=== PATIENT | female | born 1950 | race Caucasian/White ===

== ENCOUNTER 2017-02-24 14:46 | Inpatient (IN) | payer MEDICARE, BC ==
--- NOTE | ~2017-02-24 | CT16 ---
[facility] A Service of [facility] RADIOLOGY TEXT RESULTS PATIENT: BURAK CHEEMA LOCATION: [facility] 319-01 : 50 UNIT #: [id number] AGE: [address]: Charmaine Mcgill MD SEX: F ORDER DR: [id number] [facility] [address] [facility]. [place], [place] [address] [id number] I MR#: [id number] #: [id number] NAME: BURAK CHEEMA : 1950 SEX: F STUDY DATE/TIME: 02/24/2017 19:09 UNIT: [address] ROOM: [facility] STUDY DESCRIPTION: CT Angio Chest for PE Attending Physician: Italia Niño M.D. Ordering Physician: Italia Niño M.D. Primary Care Physician: Maria Isabel Maxwell A.P.R.N. MEDICAL IMAGING REPORT This report is preliminary unless electronic signature is present EXAM Chest CTA, 02/24. INDICATION Acute respiratory failure with shortness of air for 4 days. Elevated D-dimer. Productive cough and wheezing. TECHNIQUE Axial images were obtained through the chest without contrast. 3D reformats were obtained. COMPARISON STUDIES No comparison. This CT exam was performed with one or more of the following radiation dose reduction techniques: automatic exposure control, adjustment of mA and/or kV according to patient size, and iterative reconstruction. FINDINGS There is no pulmonary embolism or aortic dissection. There is coronary artery disease and atherosclerotic disease. Additionally, there is calcification in the aortic valve which could indicate aortic stenosis. There is no pleural or pericardial effusion. There is mediastinal and hilar adenopathy. Subcarinal node has a short axis diameter of about 1.8 cm. Right hilar adenopathy measures about 1.6 x 3.2 cm. Multiple enlarged AP window and prevascular nodes are seen. For example, there is an AP window node measuring 1.9 x 1.2 cm. Right paratracheal node measures 1.8 x 1.6 cm. No axillary adenopathy. Scattered granulomatous calcifications are present in the chest. There is bronchial wall thickening noted bilaterally, suggesting bronchitis. Acute alveolar infiltrates are not seen. The upper abdomen is unremarkable. [facility]. [facility] A Service of [facility] RADIOLOGY TEXT RESULTS PATIENT: BURAK CHEEMA LOCATION: [facility] 319-01 : [birth year] UNIT #: [id number] AGE: [address]: Charmaine Mcgill MD SEX: F ORDER DR: IMPRESSION 1. No pulmonary embolism or aortic dissection. 2. Mediastinal and right hilar adenopathy is nonspecific. This could be due to sarcoid or lymphoma or even metastatic disease in the appropriate clinical setting. Consider follow up contrast chest CT in 3 months for further evaluation. 3. Evidence of bilateral bronchitis. 4. Old granulomatous disease. 5. Atherosclerotic disease and coronary artery disease. Additionally, calcifications in the aortic valve would suggest aortic stenosis. Dictated by... Joel Soto Jr., M.D. THIS IS AN ELECTRONICALLY VERIFIED REPORT Joel Soto Jr., M.D. at 02/25/2017 12:58 PM BEKAH/che TD: 02/24/2017 22:52 JOB #: [id number] MEDICAL IMAGING REPORT Page 1 of 1 COPY
--- NOTE | ~2017-02-24 | HP ---
Unit #: [id number] #: [id number] Patient: BURAK CHEEMA [id number] [place], [place] [address] [id number] MR#: [id number] NAME: BURAK CHEEMA ROOM: Age: 66 Sex: F Admission Date: 02/24/2017 : 1950 Attending Physician: Kolby Ibrahim M.D. Primary Care Physician: Maria Isabel Maxwell A.P.R.N. HISTORY AND PHYSICAL CHIEF COMPLAINT Shortness of air. HISTORY OF PRESENT ILLNESS The patient is a 66-year-old female with a past medical history of CHF, diabetes, hypertension, hyperlipidemia, who presented to the emergency department for evaluation of the above. The patient states that she was in her usual state of health until 02/21/2017 when she developed increasing shortness of breath and productive cough. She denies any fever. She states that she has had chest wall pain in association with cough. She has had paroxysmal nocturnal dyspnea, as well as dyspnea on exertion, walking across the room. She states that she had to sleep sitting up last night due to difficulty breathing. She has had lower extremity edema. She reports decreased appetite but no vomiting or diarrhea. She states that she has been taking her medications as prescribed. Upon arrival in the emergency department, initial oxygen saturation was 91% on room air, but dropped to 82% during the course of her evaluation in the emergency department. Chest x-ray shows mild edema versus chronic lung disease. She is being admitted to [facility] for evaluation and further treatment. PAST MEDICAL HISTORY 1. Admission to [facility] about three years ago for chest pain (no records). 2. Congestive heart failure with unknown ejection fraction, followed by Dr. Blanco. 3. Hypertension. 4. Hyperlipidemia. 5. Diabetes. PAST SURGICAL HISTORY 1. Cardiac catheterization at [facility] (no records). 2. Tonsillectomy. 3. D and C. SOCIAL HISTORY The patient lives alone. There is no tobacco or alcohol use. She is retired from the [employer]. Her code status is a full code. FAMILY HISTORY Unit #: [id number] #: [id number] Patient: BURAK CHEEMA Notable for her dad having coronary artery disease, as well as cerebrovascular accident. ALLERGIES BRITTANY inhibitors, Neosporin, polymyxin, pioglitazone. HOME MEDICATIONS Diovan 320 mg daily; metoprolol 50 mg daily; amlodipine 10 mg daily; metformin 500 mg unknown frequency; diclofenac 75 mg daily; atorvastatin 80 mg daily; potassium 20 mEq twice daily; Lasix 40 mg b.i.d.; gabapentin 300 mg b.i.d.; aspirin 81 mg daily; calcium 600 mg daily; vitamin D 5,000 mg daily; centrum silver daily. Home medications will need to be reviewed and verified. REVIEW OF SYSTEMS A complete review of systems is negative except as indicated in the HPI. The patient states that her blood sugars are typically in the 300s. PHYSICAL EXAMINATION VITAL SIGNS: Temperature is 98, pulse 96, respirations 18, blood pressure 156/62, oxygen saturation 91% on room air. Per my discussion with the ER staff, oxygen saturation dropped to 82% on room air during the course of her evaluation in the emergency department. GENERAL: The patient is a female who is awake and alert in no acute distress. HEENT: The head is atraumatic. Mucous membranes are moist. NECK: Supple. Trachea is midline. CARDIOVASCULAR: Regular rate and rhythm. LUNGS: Demonstrates inspiratory and expiratory wheezes. Breathing is mildly labored with conversation. ABDOMEN: Soft, nontender with bowel sounds present in all four quadrants. EXTREMITIES: Show 1+ pitting edema. NEUROLOGIC: The patient is awake and alert. She follows commands. PSYCH: Mood and affect are normal. The patient is cooperative. SKIN: Skin of examined areas is warm and dry. DIAGNOSTIC STUDIES CARDIOLOGY STUDIES: EKG shows normal sinus rhythm with a rate of 97 BPM. IMAGING STUDIES: Chest x-ray shows mild edema versus chronic lung disease. LABORATORY STUDIES: Complete blood count notable for white blood cell count of 11. Troponin is less than 0.5. Comprehensive metabolic panel notable for sodium of 132 that corrects when glucose of 344 is accounted for. Alk phos 126, albumin 3.3, BNP is 495. ASSESSMENT The patient is a 66-year-old female with: 1. Acute respiratory failure, hypoxic. 2. Bronchospasm. The patient denies a history of COPD or asthma. She was never a smoker. 3. Congestive heart failure with unknown ejection fraction. 4. Uncontrolled diabetes with an initial glucose of 344. 5. Hypertension. 6. Hyperlipidemia. PLANS Unit #: [id number] #: [id number] Patient: BURAK CHEEMA 1. Admit to an intermediate level. 2. 2 g sodium 1800 mL fluid restricted heart healthy consistent carb diet. 3. Supplement oxygen. 4. DuoNeb. 5. Solu-Medrol 80 mg IV q.12 hours with first dose now. 6. Mucinex 600 mg p.o. b.i.d. 7. Doxycycline 100 mg p.o. b.i.d. for a possible acute bronchitis. 8. Strict I's and O's. 9. Daily weights. 10. 2D echo. 11. Lasix 40 mg IV q.12 hours with first dose now. 12. TSH. 13. Serial cardiac enzymes. 14. Get cardiac cath report from [place]. 15. Low dose sliding scale insulin with Accu-Cheks. 16. Hemoglobin A1c. 17. Protonix for GI prophylaxis since the patient will be on Solo-Medrol. 18. Lovenox for DVT prophylax. 19. Check urinalysis. 20. Repeat labs in the morning. 21. Additional workup and consults based on above. Dictated by Claire Juan/kvng TD: 02/24/2017 18:23 JOB #: [id number] HISTORY AND PHYSICAL Page 1 of 1 X Italia Niño MD X HISTORY AND PHYSICAL
--- NOTE | ~2017-02-24 | DS ---
Unit #: [id number] #: [id number] Patient: BURAK CHEEMA [id number] [address] [id number] I MR#: [id number] NAME: BURAK CHEEMA. ROOM: 319 Age: 66 Sex: F Admission Date: 02/24/2017 : 1950 Discharge Date: Attending Physician: Charmaine Mcgill M.D. Primary Care Physician: Maria Isabel Maxwell A.P.R.N. DISCHARGE SUMMARY DISCHARGE DIAGNOSES 1. Acute hypoxic respiratory failure. 2. Acute on chronic diastolic heart failure. 3. Acute bronchitis. 4. Diabetes mellitus type 2 uncontrolled. 5. Moderate to severe aortic stenosis. 6. Cardiac asthma. 7. Hyperlipidemia. 8. Hyponatremia, likely from congestive heart failure. 9. No sepsis. 10. Elevated lactic acid most likely from hypoxia and congestive heart failure. CONSULTATIONS 1. Dr. Griffiths. 2. Dr. Quinn. PROCEDURES None. DIAGNOSTIC STUDIES LABORATORY: Glucose 471, sodium 134, potassium 3.7, creatinine 1.3, glucose 185. WBC 22.3, hemoglobin 11.8, platelets 263. Urine cultures negative. Blood cultures negative. IMAGING: CT angio chest shows no pulmonary embolism. Mediastinal right hilar adenopathy, nonspecific, could be from sarcoid or lymphoma. Repeat CT in three months' time recommended. Old granulomatous changes present. Calcification of aortic valves suggesting aortic stenosis present. CARDIOVASCULAR: Echocardiogram shows ejection fraction 50 to 55%, moderate to severe aortic stenosis present, moderate aortic regurgitation and moderate mitral regurgitation present. ALLERGIES Multiple includin. BRITTANY inhibitors. 2. Neomycin. 3. Bacitracin. 4. Polymyxin B. 5. Pioglitazone. DISCHARGE MEDICATIONS 1. Calcium 600 mg p.o. daily. Unit #: [id number] #: [id number] Patient: BURAK CHEEMA 2. Neurontin 300 mg p.o. b.i.d. 3. Lipitor 80 mg daily. 4. Toprol XL 50 mg p.o. daily. 5. Lasix 20 mg p.o. b.i.d. Start date 02/28/2017. 6. Humibid LA 600 mg p.o. b.i.d. 7. Diovan 150 mg p.o. daily. Start date 03/01/2017. 8. Levemir 20 units subcu q.8 a.m. 9. NovoLog low dose sliding scale a.c. and h.s. 10. Multivitamin one tablet daily. 11. Aspirin 81 mg daily. 12. Doxycycline 100 mg p.o. b.i.d. 13. B complex one tablet daily. 14. Vitamin D3 5,000 international units p.o. daily. 15. Albuterol MDI two puffs inhalation four times daily p.r.n. shortness of breath. 16. Symbicort 160 mcg two puffs inhalation b.i.d. 17. Prednisone tapering dose. HOSPITALIZATION COURSE A 66-year-old admitted with shortness of breath. Acute on chronic diastolic heart failure: Aortic stenosis can be contributing for the heart failure also in her case. The patient was given IV diuretics. Currently, her swelling is better. Her shortness of breath got better. She will be discharged on p.o. Lasix and decreased dose of Diovan. The patient will follow Dr. Blanco as an outpatient. Severe aortic stenosis and moderate aortic regurgitation with moderate mitral regurgitation: The patient was seen by Cardiology. 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 Blanco, for it. The patient needs SHAYLA as an outpatient to monitor her aortic stenosis. The patient agrees to follow Dr. Blanco for SHAYLA and possible heart cath and follow for her aortic stenosis as an outpatient. Acute bronchitis: Also, her rhonchi could be possible from cardiac asthma. The patient received IV Solu-Medrol, DuoNeb and will be discharged on Albuterol, Symbicort and prednisone tapering dose. Diabetes mellitus type 2: Uncontrolled secondary to steroids. Levemir has been started. I am going to give her prescription for sliding scale and Levemir. Morbid obesity secondary to calories. Mild acute kidney injury secondary to diuretics and Diovan which has been cut down. She will have a BMP checked on 03/05/2017 and follow with PCP with results. Discussed with the daughter and patient. They agree to follow with Dr. Blanco for outpatient SHAYLA, possible cardiac cath and follow for her aortic stenosis. Discussed with Dr. Griffiths. The patient will be discharged home. Follow with the PCP in one week's time. The patient will have BMP on 03/05/2017. Follow with the PCP with results. Follow with Dr. Blanco in one to two weeks' time. The patient needs a repeat CT chest in three months' time for her pulmonary right hilar adenopathy, possible granulomatous disease and Unit #: [id number] #: [id number] Patient: BURAK CHEEMA follow with Dr. Quinn with that. Discharge time taken is 35 minutes. Dictated by... Claire Pena/zackary TD: 02/27/2017 13:12 JOB #: [id number] DISCHARGE SUMMARY Page 1 of 1 X Charmaine Mcgill MD X DISCHARGE SUMMARY
--- NOTE | ~2017-02-24 | CR72 ---
[facility] A Service of [facility] RADIOLOGY TEXT RESULTS PATIENT: BURAK CHEEMA LOCATION: [facility] 319-01 : [birth year] UNIT #: [id number] AGE: [address]: Charmaine Mcgill MD SEX: F ORDER DR: [id number] [facility] [address] [facility] [place], [place] [address] [id number] E MR#: [id number] Acc #: [id number] NAME: BURAK CHEEMA. : 1950 SEX: F STUDY DATE/TIME: 02/24/2017 15:53 UNIT: [facility] ROOM: STUDY DESCRIPTION: CR Chest Single View Portable Attending Physician: Kolby Ibrahim M.D. Ordering Physician: Kolby Ibrahim M.D. Primary Care Physician: Maria Isabel Maxwell A.P.R.N. MEDICAL IMAGING REPORT This report is preliminary unless electronic signature is present EXAM Portable AP view of the chest. COMPARISON None. INDICATION 66-year-old female with dyspnea, cough for 3 days. History of CHF. FINDINGS There is top normal heart size. There is cephalization of pulmonary vasculature with prominent interstitial opacities in both lung bases. These findings may reflect mild interstitial edema. No evidence of pneumothorax, pleural effusion or consolidative pneumonia. Diffuse spondylosis of the thoracic spine. IMPRESSION Top normal heart size. Cephalization of pulmonary vasculature with prominence of the pulmonary interstitium in the lung bases, findings possibly reflective of mild interstitial edema. Chronic lung disease could possibly give this appearance. Clinical correlation recommended. No pleural effusion or evidence of pneumonia. Dictated by... Mukesh Valladares M.D. THIS IS AN ELECTRONICALLY VERIFIED REPORT Mukesh Valladares M.D. at 03/03/2017 2:01 PM Kelly TD: 02/24/2017 17:52 JOB #: [id number] [facility] A Service [facility] RADIOLOGY TEXT RESULTS PATIENT: BURAK CHEEMA LOCATION: [facility] 319-01 : [birth year] UNIT #: [id number] AGE: [address]: Charmaine Mcgill MD SEX: F ORDER DR: MEDICAL IMAGING REPORT Page 1 of 1 COPY
--- NOTE | ~2017-02-24 | EKG ---
PATIENT: BURAK CHEEMA UNIT #: [id number] Ventricular Rate: 97 BPM Atrial Rate: 97 BPM P-R Interval: 138 ms QRS Duration: 88 ms Q-T Interval: 350 ms QTC Calculation(Bezet): 444 ms Calculated R [place]: 132 degrees Calculated T [place]: -158 degrees Diagnosis Line: Normal sinus rhythm Diagnosis Line: Left posterior fascicular block Diagnosis Line: Left ventricular hypertrophy with repolarization Diagnosis Line: abnormality Diagnosis Line: Abnormal ECG Diagnosis Line: No previous ECGs available Diagnosis Line: Confirmed by PEDRO SCHMITT MD ([id number]) on Diagnosis Line: 02/27/2017 3:15:05 PM INTERPRETING MD: OSKAR TREJO
--- NOTE | ~2017-02-24 | CO ---
Unit #: [id number] #: [id number] Patient: BURAK CHEEMA [id number] [address] [address] [id number] I MR#: [id number] NAME: BURAK CHEEMA. ROOM: 319 Age: 66 Sex: F Admission Date: 02/24/2017 : 1950 Attending Physician: Charmaine Mcgill M.D. Primary Care Physician: Maria Isabel Maxwell A.P.R.N. CONSULTATION REPORT REASON FOR CONSULTATION Respiratory failure. CHIEF COMPLAINT AND HISTORY OF PRESENT ILLNESS This patient basically is a 66-year-old female. According to the patient, has a past medical history of congestive heart failure, obstructive sleep apnea, dyslipidemia and diabetes mellitus. Presents with the complaint of shortness of breath since Sunday. Cough, shortness of breath, increasing sputum production. CT chest was done. Showed bronchitis, bronchitic changes. I am seeing her at the bedside. She denies any nausea, vomiting, diarrhea. PAST MEDICAL HISTORY As described above, congestive heart failure, hypertension, dyslipidemia, obstructive sleep apnea - noncompliant with CPAP. SURGICAL HISTORY Cardiac catheterization, tonsillectomy, D and C. SOCIAL HISTORY Never smoked. No alcohol. No drug abuse. FAMILY HISTORY Coronary artery disease. ALLERGIES BRITTANY inhibitor, Neosporin, polymyxin and pioglitazone. MEDICATIONS Diovan, Metoprolol, amlodipine, metformin, diclofenac, Lipitor, potassium, Lasix, gabapentin, aspirin, calcium, vitamin. PHYSICAL EXAMINATION VITAL SIGNS: Temperature 98, pulse 87, respirations 12, blood pressure 156/62. NEUROLOGIC: Awake, alert and oriented. No neuro deficits. HEENT: PERRLA. EOMI. NECK: Supple. No JVD. CHEST: Bilateral air entry. Bilateral mild rhonchi. GI: Nontender. Soft. Bowel sounds are positive. EXTREMITIES: No edema. SKIN: No rashes, no ulcer. LYMPHATIC: No lymphadenopathy. Unit #: [id number] #: [id number] Patient: BURAK CHEEMA DIAGNOSTIC STUDIES Labs and imaging have been reviewed. ASSESSMENT 1. Acute respiratory failure. 2. Bronchospasm. 3. Acute bronchitis. 4. Congestive heart failure. 5. Mediastinal lymphadenopathy. PLAN At this point, plan is to continue the patient on IV steroids. Decrease the strength and continue doxycycline. Sputum culture. Will send for respiratory pathogen panel. Patient needs exercise oximetry. Will need a repeat sleep study as an outpatient. Will need endobronchial ultrasound with biopsy of the mediastinal lymph nodes. Patient will be closely monitored. Please see orders for detailed plan. Thank you very much for this consultation. Dictated by... Claire Husain/candelaria TD: 02/25/2017 11:54 JOB #: [id number] CONSULTATION REPORT Page 1 of 1 X Rich Quinn MD X CONSULTATION REPORT
--- NOTE | ~2017-02-24 | CO ---
Unit #: [id number] #: [id number] Patient: BURAK CHEEMA [id number] [address] [place], [place] [address] [id number] MR#: [id number] NAME: BURAK CHEEMA. ROOM: 319 Age: 66 Sex: F Admission Date: 02/24/2017 : 1950 Attending Physician: Charmaine Mcgill M.D. Primary Care Physician: Maria Isabel Maxwell A.P.R.N. Consultation Date: 02/27/2017 CONSULTATION REPORT REASON FOR CONSULTATION Moderate to severe aortic stenosis and management of acute on chronic diastolic congestive heart failure. HISTORY OF PRESENT ILLNESS This is a 66-year-old white female with known history of diabetes mellitus, hypertension, hyperlipidemia, history of diastolic congestive heart failure. She had been following Dr. Blanco. She had a cath about six years ago and she reports she had about a 20% blockage in one vessel. Also, she knew she had a murmur but was never told had any significant valve issues. She reports she has lost 40 pounds in the last six months because of staying off of concentrated sweets and stopping all sodas. She came into the hospital with complaints of increased shortness of breath, paroxysmal nocturnal dyspnea and orthopnea, productive cough of yellowish sputum and increased lower extremity swelling. She denies any chest pain, pain in her neck, bilateral jaws, shoulders arms or elbow. She denies any palpitations. No dyspnea, presyncope or syncope. She denies any fever or chills. She denies any nausea, vomiting, diarrhea or abdominal pain. After evaluation, the patient was found to be in acute bronchitis and acute on chronic diastolic congestive heart failure. She is receiving treatment for her acute bronchitis and is followed by Dr. Quinn. She also is being diuresed with IV Lasix. Her 2-D echo was done and it showed her LVEF was 50 to 55%. She had moderate to severe aortic stenosis and moderate aortic regurgitation and moderate mitral regurgitation. With these findings on the echo and suspecting they may be contributing to her symptoms, Cardiology was consulted to assist with evaluation and management. PAST MEDICAL HISTORY 1. Diabetes mellitus type 2. 2. Hypertension. 3. Hyperlipidemia. 4. History of diastolic congestive heart failure and has followed Dr. Blanco at [facility]. 5. Obstructive sleep apnea but noncompliant with her CPAP. 6. Six years ago, the patient reports having a heart catheterization, revealed about a 20% blockage in one vessel, medical management. 7. Also told she has a murmur. 8. A 40 pound weight loss in about six months. 9. Obesity 227 lb. BMI is 40. 10. Nonsmoker. 11. 02/25/17, 2-D echo, LVEF of 50 to 55% that revealed moderate to Unit #: [id number] #: [id number] Patient: BURAK CHEEMA severe aortic stenosis, moderate aortic regurgitation, moderate mitral regurgitation, mild to moderate LVH. PAST SURGICAL HISTORY 1. Tubal ligation. 2. Tonsillectomy. SOCIAL HISTORY The patient lives in her home alone. She is . She is retired from the [employer]. She is a lifelong nonsmoker. No alcohol, illicit drug abuse. FAMILY HISTORY Her father had coronary artery disease and from a stroke but he had a couple of MIs and he had coronary bypass graft. She has a younger brother who has diabetes mellitus. ALLERGIES 1. BRITTANY inhibitors. 2. Actos. 3. Neosporin. HOME MEDICATIONS 1. Diovan 320 mg p.o. daily. 2. Toprol XL 50 mg p.o. daily. 3. Norvasc 10 mg p.o. daily. 4. Diclofenac 75 mg p.o. daily. 5. Lipitor 80 mg p.o. daily. 6. Klor-Con 20 mEq p.o. twice daily. 7. Lasix 40 mg p.o. twice daily. 8. Neurontin 300 mg p.o. twice daily. 9. Aspirin 81 mg daily. 10. Calcium 600 mg p.o. daily. 11. Vitamin D3 5,000 mg p.o. daily. 12. Vitamin B complex one tablet p.o. daily. 13. Centrum Silver one tablet p.o. daily. 14. Metformin 1,000 mg p.o. twice daily. REVIEW OF SYSTEMS See details in HPI. PHYSICAL EXAMINATION GENERAL APPEARANCE: The patient is a 66-year-old white female in no acute respiratory distress. She is awake, alert and oriented. VITAL SIGNS: Blood pressure this morning is 112/61. Heart rate 74. Respirations 16. Temperature 98.5. O2 sats 95% on two liters. NECK: Trachea midline. No thyromegaly, lymphadenopathy. Normal carotid upstrokes. No jugular venous distention. HEART: S1, S2. A 3/6 systolic murmur over aortic region left sternal border. LUNGS: Diminished in bases with scattered rhonchi and wheezes throughout especially upper airways. ABDOMEN: Obese, soft, nontender. EXTREMITIES: Pedal pulses are palpable with trace pedal edema. DIAGNOSTIC STUDIES LABORATORY: Today's labs: Glucose 185, BUN 71, creatinine 1.3, EGFR 42.7, sodium 134, potassium 3.7, chloride 97, CO2 25, calcium 9.1, total protein Unit #: [id number] #: [id number] Patient: BURAK CHEEMA J 7.8, albumin 3.3, bilirubin total 0.9, AST 18, ALT 16, alkaline phosphatase 126. BNP 495. TSH 1.0. Lactic acid on admission was 2.9 and later 3.3. WBC on admission was 11.0, today, 22, hemoglobin 11.8, hematocrit 35.9, platelets 263. Initial cardiac enzymes: CK MB 7.1, troponin less than 0.05. Repeat cardiac enzymes: CK total 269, MB 3.4, percentage of MB 1.3 and troponin less than 0.03. CK total 197, MB 3.7, percentage of MB 1.9 and troponin less than 0.03. Urinalysis: Greater than 1,000 glucose, 0.2 urobilinogen, otherwise, unremarkable. Blood cultures, preliminary report, no growth. Urine culture, final, no growth. D-dimer 1,103. IMAGING: Chest x-ray showed pulmonary vascular with prominence of the pulmonary interstitium in the lung bases. Findings possibly reflective of mild interstitial edema. Chronic lung disease could possibly give this appearance. CT of the chest, PE protocol, shows no pulmonary embolism or aortic dissection. Mediastinal and right hilar adenopathy is nonspecific. Evidence of bilateral bronchitis, atherosclerotic disease and coronary artery disease. CARDIOVASCULAR: EKG shows normal sinus rhythm with ventricular rate 97 beats per minute, left ventricular hypertrophy, left atrial abnormality, nonspecific ST-T wave abnormalities in inferolateral leads. IMPRESSION 1. Acute on chronic hypoxic respiratory failure, acute bronchitis. 2. Acute on chronic diastolic congestive heart failure. LVEF of 50 to 55%. 3. Moderate to severe aortic stenosis, moderate mitral regurgitation, moderate aortic regurgitation. 4. Hypertension. 5. Hyperlipidemia. 6. Diabetes mellitus type 2. 7. Obstructive sleep apnea but noncompliant with her CPAP. 8. Recent 40 pound weight loss in six months. 9. Obesity, 227 pounds with a BMI of 40. 10. Six years ago had a cardiac cath that showed nonobstructive minimal CAD. PLAN 1. Cardiology consult to assist with evaluation and management. The patient being diuresed with IV Lasix with strict intake and output and daily weights. Today, her BUN went from 17 on admission to 71. So, we will hold the Lasix today. On exam, she does not appear to be in any significant overload, has discussed with the patient fluid restriction and salt restriction. 2. Discussed with the patient the reason for Cardiology consult to discuss about the moderate to severe aortic stenosis. Dr. Griffiths had a long discussion with the patient and the daughter at the bedside and the recommendation is to have a transesophageal echocardiogram to determine the severity of the aortic stenosis. Her recommendation is if the SHAYLA shows aortic stenosis is severe, she will need left and right heart catheterization. The patient is deciding whether she wants to return back to [facility] or have the procedures done here. 3. We will stop her Norvasc because her blood pressure is a little on the low side today. She is to continue on her Diovan. The patient is allergic to an BRITTANY inhibitor. 4. On exam, there is no sign or symptoms of unstable angina. Cardiac Unit #: [id number] #: [id number] Patient: BURAK CHEEMA enzymes remain negative. 5. CHF education provided to patient. 6. The patient is being managed for her acute bronchitis by Dr. Quinn. 7. Further recommendations pending per Dr. Griffiths. Thank you very much for allowing us to assist in care. Dictated by... Ángela Mendez A.P.R.N. for Claire Jane/zackary TD: 02/27/2017 08:55 JOB #: [id number] CONSULTATION REPORT Page 1 of 1 X Ángela Mendez APRN CONSULTATION REPORT
[2017-02-24 15:36] LABS: BASOPHIL# 0.1 X10e3 (0-0.3); BASOPHIL% 0.7 % (0-2.5); EOSINOPHIL# 0.1 X10e3 (0-0.7); EOSINOPHIL% 0.6 % (0.0-7.0); HEMATOCRIT 37.6 % (35.0-45.0); HEMOGLOBIN 12.3 gm/dL (12.0-16.0); LYMPHOCYTE# 1.7 X10e3 (1.0-3.5); MEAN CELL VOLUME 88.1 FL (83-96); MEAN CORPUSCULAR HEMOGLOBIN 28.7 PG (28-34); MEAN CORPUSCULAR HGB CONC 32.6 g/dL (30-36); MEAN PLATELET VOLUME 9.1 FL (6.5-11.5); MONOCYTE# 0.9 X10e3 (0-1.0); NEUTROPHIL# 8.4 X10e3 (1.5-7.1); NEUTROPHIL% 75.7 % (40-75); PLATELET COUNT 238 X10e3 (140-420); RED BLOOD COUNT 4.27 X10e (3.90-5.30); RED CELL DISTRIBUTION WIDTH 15.3 % (11.0-15.5)
[2017-02-24 15:37] LABS: DIFF IND NO
[2017-02-24 15:54] LABS: POC - CKMB 1.9 ng/mL (0.0-7.9); POC - TROPONIN <0.05 ng/mL (<=0.05)
[2017-02-24 16:06] LABS: ALBUMIN SERUM 3.3 g/dL (3.5-5.0); BILIRUBIN, DIRECT 0.1 mg/dL (0.0-0.2); BILIRUBIN,INDIRECT 0.8 mg/dL (0.0-0.9); BILIRUBIN,TOTAL 0.9 mg/dL (0.2-2.0); BUN/CREATININE RATIO 21.25; CALCIUM SERUM 8.7 mg/dL (8.4-10.2); CREATININE SERUM 0.8 mg/dL (0.6-1.4); GLOM FILT RATE Estimated 76.9 mL/min (>60); POTASSIUM 3.7 mmol/L (3.5-5.1); PROTEIN TOTAL SERUM 7.8 g/dL (6.0-8.3)
[2017-02-24 18:10] LABS: POC - CKMB 7.1 ng/mL (0.0-7.9); POC - TROPONIN <0.05 ng/mL (<=0.05)
[2017-02-24] MEDS ORDERED: TOPROL XL50 MG PO (19:09)
[2017-02-24] MEDS ORDERED: NORVASC10 MG PO (19:09)
[2017-02-24] MEDS ORDERED: DIOVAN320 MG PO (19:09)
[2017-02-24] MEDS ORDERED: LIPITOR80 MG PO (19:11)
[2017-02-24] MEDS ORDERED: VOLTAREN75 MG PO (19:11)
[2017-02-24] MEDS ORDERED: KCL PO (19:12)
[2017-02-24] MEDS ORDERED: ASPIRIN EC81 M1 PO (19:14)
[2017-02-24] MEDS ORDERED: NEURONTIN300 MG PO (19:14)
[2017-02-24] MEDS ORDERED: LASIX80 MG PO (19:14)
[2017-02-24] MEDS ORDERED: VITAMIN D-32000 UNIT PO (19:16)
[2017-02-24] MEDS ORDERED: CALCIUM500 M1 PO (19:16)
[2017-02-24] MEDS ORDERED: B COMPLEX1 EACH PO (19:17)
[2017-02-24] MEDS ORDERED: CENTRUM SILVER1 EAC2 PO (19:17)
[2017-02-24] MEDS ORDERED: METFORMIN HCL1000 M1 PO (19:50)
[2017-02-24 23:45] LABS: URINE SOURCE CLEAN CATCH
[2017-02-24 23:50] LABS: URINE APPEARANCE CLEAR; URINE BILIRUBIN NEG (NEG); URINE BLOOD NEG (NEG); URINE COLOR YELLOW; URINE GLUCOSE >1000 MG/DL (NEG); URINE KETONE NEG (NEG); URINE LEUKOCYTE ESTERASE NEG (NEG); URINE NITRATE NEG (NEG); URINE PROTEIN NEG (NEG); URINE SPECIFIC GRAVITY 1.039 (1.003-1.035); URINE UROBILINOGEN 0.2 MG/DL (NEG)
[2017-02-24 23:56] LABS: CULTURE INDICATED? NO
[2017-02-25 00:18] LABS: %MB 1.3 % (0.0-4.0); MB 3.4 ng/ml
[2017-02-25 06:08] LABS: BASOPHIL% 0.2 % (0-2.5); HEMATOCRIT 37.8 % (35.0-45.0); HEMOGLOBIN 12.2 gm/dL (12.0-16.0); LYMPHOCYTE# 1.1 X10e3 (1.0-3.5); LYMPHOCYTE% 10.8 % (17.0-45.0); MEAN CELL VOLUME 89.5 FL (83-96); MEAN CORPUSCULAR HGB CONC 32.4 g/dL (30-36); MEAN PLATELET VOLUME 9.3 FL (6.5-11.5); MONOCYTE# 0.3 X10e3 (0-1.0); MONOCYTE% 2.9 % (3.0-12.0); NEUTROPHIL% 86.1 % (40-75); PLATELET COUNT 225 X10e3 (140-420); RED BLOOD COUNT 4.22 X10e (3.90-5.30); RED CELL DISTRIBUTION WIDTH 15.4 % (11.0-15.5); WHITE BLOOD COUNT 10.5 X10e3 (4.0-10.5)
[2017-02-25 06:12] LABS: DIFF IND NO
[2017-02-25 06:36] LABS: BUN/CREATININE RATIO 25.55; CALCIUM SERUM 8.8 mg/dL (8.4-10.2); CREATININE SERUM 0.9 mg/dL (0.6-1.4); GLOM FILT RATE Estimated 66.7 mL/min (>60); POTASSIUM 4.1 mmol/L (3.5-5.1)
[2017-02-25 07:11] LABS: %MB 1.9 % (0.0-4.0); MB 3.7 ng/ml
[2017-02-27 04:08] LABS: HEMATOCRIT 35.9 % (35.0-45.0); HEMOGLOBIN 11.8 gm/dL (12.0-16.0); MEAN CELL VOLUME 87.9 FL (83-96); MEAN CORPUSCULAR HEMOGLOBIN 28.7 PG (28-34); MEAN CORPUSCULAR HGB CONC 32.7 g/dL (30-36); MEAN PLATELET VOLUME 9.3 FL (6.5-11.5); RED BLOOD COUNT 4.09 X10e (3.90-5.30); RED CELL DISTRIBUTION WIDTH 15.5 % (11.0-15.5)
[2017-02-27 04:28] LABS: BUN/CREATININE RATIO 54.61; CALCIUM SERUM 9.1 mg/dL (8.4-10.2); CREATININE SERUM 1.3 mg/dL (0.6-1.4); GLOM FILT RATE Estimated 42.7 mL/min (>60); POTASSIUM 3.7 mmol/L (3.5-5.1)
[2017-02-27] MEDS ORDERED: HUMIBID-LA600 MG PO (13:36)
[2017-02-27] MEDS ORDERED: LEVEMIR SUBQ (13:38)
[2017-02-27] MEDS ORDERED: NOVOLOG100 U/ML (13:39)
[2017-02-27] MEDS ORDERED: DOXYCYCLINE HY100 M3 PO (13:40)
[2017-02-27] MEDS ORDERED: ALBUTEROL17 GM INH (13:43)
[2017-02-27] MEDS ORDERED: SYMBICORT INH (13:44)
[2017-02-27] MEDS ORDERED: PREDNISONE (13:45)
== END 2017-02-27 18:05 | disposition home or self-care (01) | DRG 291 ==
LOC: CED 14:46 → CEDOF 17:00 → C3A PCU 18:53
PROVIDERS: Emergency Medicine; Family Medicine; Internal Medicine
PROC: B32TYZZ Computerized Tomography (CT Scan) of Left Pulmonary Artery using Other Contrast (ICD-10-PCS; 2017-02-24)
PROC: B32SYZZ Computerized Tomography (CT Scan) of Right Pulmonary Artery using Other Contrast (ICD-10-PCS; 2017-02-24)
PROC: B246YZZ Ultrasonography of Right and Left Heart using Other Contrast (ICD-10-PCS; principal; 2017-02-25)
DX: I11.0 Hypertensive heart disease with heart failure (principal); J96.01 Acute respiratory failure with hypoxia; N17.9 Acute kidney failure, unspecified; Z68.41 Body mass index [BMI] 40.0-44.9, adult; E87.1 Hypo-osmolality and hyponatremia; I50.33 Acute on chronic diastolic (congestive) heart failure; J20.9 Acute bronchitis, unspecified; E11.65 Type 2 diabetes mellitus with hyperglycemia; T38.0X5A Adverse effect of glucocorticoids and synthetic analogues, initial encounter; E78.5 Hyperlipidemia, unspecified; G47.33 Obstructive sleep apnea (adult) (pediatric); Z83.3 Family history of diabetes mellitus; Z82.49 Family history of ischemic heart disease and other diseases of the circulatory system; Z82.3 Family history of stroke; I08.0 Rheumatic disorders of both mitral and aortic valves; E66.01 Morbid (severe) obesity due to excess calories
CPT/HCPCS: 36415; 71010; 71275; 80048; 80076; 81003; 82550; 82553; 82947; 83036; 83605; 83880; 84443; 84484; 85025; 85027; 85379; 86592; 87040; 87086; 93005; 93306; 94640; 94644; 94760; 99291; J1650; J1815; J1940; J2920; J2930; Q9967